=== PATIENT | female | born 1990 | race Caucasian/White ===

== ENCOUNTER 2017-09-02 10:32 | Emergency (ER) | payer SELFPAY ==
[2017-09-02 10:46] VITALS: BP 106/51
--- NOTE | 2017-09-02 19:06 | EDM.PDOC ---
Scribed by Yarely Keenan 09/02/17 1151 for Pinky Cao NP ED HPI GENERAL MEDICAL PROBLEM - General Chief Complaint: ENT Problem Stated Complaint: ? STREP THROAT Time Seen by Provider: 09/02/17 11:43 Source of Information: Reports: Patient, RN, RN Notes Reviewed History Limitations: Reports: No Limitations - History of Present Illness INITIAL COMMENTS - FREE TEXT/NARRATIVE: Patient presented to ER with complaint of numb throat, sore throat, congestion, cough, shortness of breath and left ear pain. She has had no fever, chills, chest pain, nausea, vomiting and diarrhea.The sore throat began Sunday. Duration: Getting Worse Location: Reports: Other (throat) Quality: Reports: Ache Severity: Mild Improves with: Reports: None Worsens with: Reports: None Associated Symptoms: Reports: No Other Symptoms - Related Data Allergies Allergy/AdvReac Type Severity Reaction Status Date / Time No Known Allergies Allergy Verified 02/14/16 13:55 Home Meds: Home Meds Control 1 tab PO DAILY 02/14/16 [History] Past Medical History - Past Health History Medical/Surgical History: Denies Medical/Surgical History HEENT History: Reports: None Cardiovascular History: Reports: None Respiratory History: Reports: None Gastrointestinal History: Reports: None Genitourinary History: Reports: None 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 Musculoskeletal History: Reports: None Neurological History: Reports: None Psychiatric History: Reports: None Endocrine/Metabolic History: Reports: None Hematologic History: Reports: None Immunologic History: Reports: None Oncologic (Cancer) History: Reports: None Dermatologic History: Reports: None Social & Family History - Family History Family Medical History: Noncontributory - Tobacco Use Smoking Status *Q: Never Smoker Years of Tobacco use: 1 Used Tobacco, but Quit: Yes Month/Year Tobacco Last Used: jun 24 Second Hand Smoke Exposure: Yes - Caffeine Use Caffeine Use: Reports: Coffee, Soda, Tea - Alcohol Use Days Per Week of Alcohol Use: 3 Number of Drinks Per Day: 1 Total Drinks Per Week: 3 - Recreational Drug Use Recreational Drug Use: No - Living Situation & Occupation Living situation: Reports: with Significant Other Occupation: Unemployed ED ROS ENT - Review of Systems Review Of Systems: ROS reveals no pertinent complaints other than HPI. ED EXAM, ENT - Physical Exam Exam: See Below Exam Limited By: No Limitations General Appearance: Alert, WD/WN, No Apparent Distress Eye Exam: Bilateral Eye: Normal Inspection Ears: Normal External Exam, Normal Canal, Hearing Grossly Normal, Normal TMs Nose: Other (congestion) Mouth/Throat: Other (throat mildly erythematous) Head: Atraumatic, Normocephalic Neck: Normal Inspection, Supple, Non-Tender, Full Range of Motion Respiratory/Chest: No Respiratory Distress, Lungs Clear, Normal Breath Sounds, No Accessory Muscle Use, Chest Non-Tender Cardiovascular: Normal Peripheral Pulses, Regular Rate, Rhythm, No Edema, No Gallop, No JVD, No Murmur, No Rub GI/Abdominal: Normal Bowel Sounds, Soft, Non-Tender, No Organomegaly, No Distention, No Abnormal Bruit, No Mass (Female) Exam: Deferred Rectal (Female) Exam: Deferred Back: Normal Inspection, Full Range of Motion Extremities: Normal Inspection, Normal Range of Motion, Non-Tender, No Pedal Edema, Normal Capillary Refill Neurological: Alert, Oriented, CN II-XII Intact, Normal Cognition, Normal Gait, Normal Reflexes, No Motor/Sensory Deficits Psychiatric: Normal Affect, Normal Mood Skin: Warm, Dry, Intact, Normal Color, No Rash Lymphatic: No Adenopathy Course - Vital Signs Last Recorded V/S: Last Vital Signs Temp 36.6 C 09/02/17 10:45 Pulse 64 09/02/17 10:45 Resp 16 09/02/17 10:45 BP 106/51 L 09/02/17 10:45 Pulse Ox 100 09/02/17 10:45 - Orders/Labs/Meds Orders: Active Orders 24 hr Category Date Time Status CULTURE STREP A CONFIRMATION [] Stat Lab 09/02/17 10:43 Results STREP SCRN A RAPID W CULT CONF [] Stat Lab 09/02/17 10:43 Results Labs: Rapid strep: Negative. Departure - Departure Time of Disposition: 11:50 Disposition: Home, Self-Care 01 Clinical Impression: Viral upper respiratory infection - Discharge Information Instructions: Viral Respiratory Infection, [id number] Forms: ED Department Discharge Additional Instructions: Tylenol and/or ibuprofen as directed for pain or fever Drink plenty of fluids Rest Follow up with your primary care facility I have read and agree with the documentation that has been completed regarding this visit. By signing this record, I attest that the documentation was completed in my physical presence and is an accurate record of the encounter.
== END 2017-09-02 12:02 | disposition home or self-care (01) ==
LOC: DL.ED 10:32
DX: J06.9 Acute upper respiratory infection, unspecified (principal); Z79.3 Long term (current) use of hormonal contraceptives
CPT/HCPCS: 87081; 87430; 99282; 99283

== ENCOUNTER 2017-12-18 21:07 | Emergency (ER) | payer MEDICARE, MEDICAID ==
[2017-12-18 21:23] VITALS: BP 111/59
--- NOTE | 2017-12-18 23:47 | EDM.PDOC ---
ED HPI GENERAL MEDICAL PROBLEM - General Chief Complaint: Gastrointestinal Problem Stated Complaint: [id number] STOMACH ISSUES Time Seen by Provider: 12/18/17 23:42 Source of Information: Reports: Patient History Limitations: Reports: No Limitations - History of Present Illness INITIAL COMMENTS - FREE TEXT/NARRATIVE: c/o lower abdominal pain over past 2 weeks, Hx constipation, No urinary symptoms. LMP one month ago. No fever or chills. 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 Musculoskeletal History: Reports: None Neurological History: Reports: None Psychiatric History: Reports: None Endocrine/Metabolic History: Reports: None Hematologic History: Reports: None Immunologic History: Reports: None Oncologic (Cancer) History: Reports: None Dermatologic History: Reports: None Social & Family History - Family History Family Medical History: Noncontributory - Tobacco Use Smoking Status *Q: Current Every Day Smoker Years of Tobacco use: 7 Packs/Tins Daily: 3 - Caffeine Use Caffeine Use: Reports: Soda - Recreational Drug Use Recreational Drug Use: No - Living Situation & Occupation Living situation: Reports: with Significant Other Occupation: Unemployed ED ROS GENERAL - Review of Systems Review Of Systems: ROS reveals no pertinent complaints other than HPI. ED EXAM, GI/ABD - Physical Exam Exam: See Below Exam Limited By: No Limitations General Appearance: Alert, No Apparent Distress Ears: Normal External Exam Nose: Normal Inspection Throat/Mouth: Normal Inspection Head: Normocephalic Neck: Normal Inspection Respiratory/Chest: No Respiratory Distress, Lungs Clear Cardiovascular: Normal Peripheral Pulses, Regular Rate, Rhythm GI/Abdominal Exam: Normal Bowel Sounds, Soft, Non-Tender. No: Distended, Guarding, Rebound Neurological: Alert, Oriented Psychiatric: Normal Affect Skin Exam: Warm, Dry, Intact, Normal Color Course - Vital Signs Last Recorded V/S: Last Vital Signs Temp 98.0 F 12/18/17 21:22 Pulse 66 12/18/17 21:22 Resp 18 12/18/17 21:22 BP 111/59 L 12/18/17 21:22 Pulse Ox 98 12/18/17 21:22 - Orders/Labs/Meds Labs: Laboratory Tests 12/18/17 12/18/17 12/18/17 Range/Units 21:33 21:33 21:33 Urine Color Yellow (YELLOW) Urine Appearance Slightly cloudy (CLEAR) Urine pH 5.5 (5.0-9.0) Ur Specific [place] 1.025 (1.005-1.030) Urine Protein Trace H (NEGATIVE) Urine Glucose (UA) Negative (NEGATIVE) Urine Ketones Negative (NEGATIVE) Urine Occult Blood Negative (NEGATIVE) Urine Nitrite Negative (NEGATIVE) Urine Bilirubin Negative (NEGATIVE) Urine Urobilinogen 0.2 (0.2-1.0) mg/dL Ur Leukocyte Esterase Trace H (NEGATIVE) Urine RBC 0-5 /HPF Urine WBC 5-10 H (0-5/HPF) /HPF Ur Epithelial Cells Moderate H /HPF Urine Bacteria Many H (0-FEW/HPF) /HPF Urine Mucus Many H /LPF Urinalysis Comment Urine HCG, Qual Negative Urine Opiates Screen Negative (NEGATIVE) Ur Oxycodone Screen Negative (NEGATIVE) Urine Methadone Screen Negative (NEGATIVE) Ur Barbiturates Screen Negative (NEGATIVE) U Tricyclic Antidepress Negative (NEGATIVE) Ur Phencyclidine Scrn Negative (NEGATIVE) Ur Amphetamine Screen Negative (NEGATIVE) U Methamphetamines Scrn Negative (NEGATIVE) Urine MDMA Screen Negative (NEGATIVE) U Benzodiazepines Scrn Negative (NEGATIVE) Urine Cocaine Screen Negative (NEGATIVE) U Marijuana (THC) Screen Negative (NEGATIVE) Departure - Departure Time of Disposition: 23:45 Disposition: Home, Self-Care 01 Condition: Good Clinical Impression: Abdominal pain Qualifiers: Abdominal location: generalized Qualified Code(s): R10.84 - Generalized abdominal pain - Discharge Information Instructions: Constipation, Adult, [id number] Referrals: PCP,None [Primary Care Provider] - Forms: ED Department Discharge Additional Instructions: miralax one capful daily as needed increase fruit and fiber in diet omeprazole 20mg one daily follow up in clinic if symptoms continue
== END 2017-12-18 23:50 | disposition home or self-care (01) ==
LOC: DL.ED 21:07
DX: R10.84 Generalized abdominal pain (principal); R10.30 Lower abdominal pain, unspecified; F17.210 Nicotine dependence, cigarettes, uncomplicated; Z88.1 Allergy status to other antibiotic agents
CPT/HCPCS: 80305-QW; 81001; 81025; 99283; 99284

== ENCOUNTER 2018-07-30 17:12 | Emergency (ER) | payer MEDICARE, MEDICAID ==
[2018-07-30 17:42] VITALS: BP 104/68
[2018-07-30 19:19] LABS: ANION GAP 14.1; CHLORIDE,CL 102 mmol/L (101-111); SODIUM,NA 134 mmol/L (135-145)
--- NOTE | 2018-07-30 21:08 | EDM.PDOC ---
Scribed by Yarely Keenan 07/30/182044 for Yocasta Sharma PA-C ED HPI GENERAL MEDICAL PROBLEM - General Chief Complaint: ENT Problem Stated Complaint: THROAT Time Seen by Provider: 07/30/18 18:33 Source of Information: Reports: Patient, RN, RN Notes Reviewed History Limitations: Reports: No Limitations - History of Present Illness INITIAL COMMENTS - FREE TEXT/NARRATIVE: Patient presents to ER with complaint of numbness in the throat beginning this afternoon. Patient states it comes and goes. She states she was recently hospitalized for a dental infection in which the left side of her face swelled up. Patient states her doctor wanted her evaluated in ER to make sure the infection was not moving down. She is 29 weeks . Last movement was today sometime. Onset: Today Duration: Getting Worse Location: Reports: Other (throat) Quality: Reports: Ache Severity: Moderate Improves with: Reports: None Worsens with: Reports: None Associated Symptoms: Reports: No Other Symptoms - Related Data Allergies Allergy/AdvReac Type Severity Reaction Status Date / Time No Known Allergies Allergy Verified 07/30/18 17:42 Home Meds: Home Meds Ferrous Sulfate [Iron] 325 mg PO DAILY 06/23/18 [History] #103/Iron Fumarate/Fa [ ] 1 tab PO DAILY 06/23/18 [ History] Clindamycin HCl 300 mg PO TID 07/30/18 [History] Ondansetron HCl [Ondansetron] 4 mg PO ASDIRECTED PRN 07/30/18 [History] Past Medical History - Past Health History Medical/Surgical History: Denies Medical/Surgical History HEENT History: Reports: Other (See Below) Other HEENT History: tooth abscess Cardiovascular History: Reports: None Respiratory History: Reports: None Gastrointestinal History: Reports: None Genitourinary History: Reports: None 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 CONSULTANT 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: 29 weeks Musculoskeletal History: Reports: None Neurological History: Reports: None Psychiatric History: Reports: None Endocrine/Metabolic History: Reports: None Hematologic History: Reports: Iron Deficiency Immunologic History: Reports: None Oncologic (Cancer) History: Reports: None Dermatologic History: Reports: None - Infectious Disease History Infectious Disease History: Reports: None - Past Surgical History Head Surgeries/Procedures: Reports: None Social & Family History - Family History Family Medical History: Noncontributory Other Cardiac Family History: Heart Attack in Maternal Grandfather and Paternal Grandfather Musculoskeletal: Reports: Osteoporosis - Tobacco Use Smoking Status *Q: Never Smoker Second Hand Smoke Exposure: No - Caffeine Use Caffeine Use: Reports: None - Living Situation & Occupation Living situation: Reports: with Significant Other (Significant Other's name is Pat.) Occupation: Employed (Works at [employer]) ED ROS ENT - Review of Systems Review Of Systems: ROS reveals no pertinent complaints other than HPI. ED EXAM, ENT - Physical Exam Exam: See Below Exam Limited By: No Limitations General Appearance: Alert, WD/WN, No Apparent Distress Eye Exam: Bilateral Eye: EOMI, Normal Inspection, PERRL Ears: Normal External Exam, Normal Canal, Hearing Grossly Normal, Normal TMs Nose: Normal Inspection Mouth/Throat: Normal Inspection, Normal Gums, Normal Lips, Normal Oropharynx, Normal Teeth Head: Atraumatic, Normocephalic Neck: Normal Inspection, Supple, Non-Tender, Full Range of Motion Respiratory/Chest: No Respiratory Distress, Lungs Clear, Normal Breath Sounds, No Accessory Muscle Use, Chest Non-Tender Cardiovascular: Normal Peripheral Pulses, Regular Rate, Rhythm, No Edema, No Gallop, No JVD, No Murmur, No Rub GI/Abdominal: Normal Bowel Sounds, Soft, Non-Tender, No Organomegaly, No Distention, No Abnormal Bruit, No Mass (Female) Exam: Deferred Rectal (Female) Exam: Deferred Back: Normal Inspection, Full Range of Motion Extremities: Normal Inspection, Normal Range of Motion, Non-Tender, No Pedal Edema, Normal Capillary Refill Neurological: Alert, Oriented, CN II-XII Intact, Normal Cognition, Normal Gait, Normal Reflexes, No Motor/Sensory Deficits Psychiatric: Normal Affect, Normal Mood Skin: Warm, Dry, Intact, Normal Color, No Rash Lymphatic: No Adenopathy Course - Vital Signs Last Recorded V/S: Last Vital Signs Temp 98.5 F 07/30/18 17:26 Pulse 68 07/30/18 17:26 Resp 16 07/30/18 17:26 BP 104/68 07/30/18 17:26 Pulse Ox 98 07/30/18 17:26 - Orders/Labs/Meds Orders: Active Orders 24 hr Category Date Time Status Heart Tones [ Heart Rate] [RC] Click to Edit Care 07/30/18 18:40 Active CULTURE STREP A CONFIRMATION [RM] Stat Lab 07/30/18 17:37 Results STREP SCRN A RAPID W CULT CONF [] Stat Lab 07/30/18 17:37 Results Labs: Laboratory Tests 07/30/18 07/30/18 Range/Units 18:57 18:57 WBC 10.0 (5.0-10.0) 10^3/uL RBC 3.67 L (4.2-5.4) 10^6/uL Hgb 11.7 L (12.0-16.0) g/dL Hct 35.6 L (37.0-47.0) % MCV 97.0 (80-100) fL MCH 31.9 (27.0-34.0) pg MCHC 32.9 L (33.0-35.0) g/dL Plt Count 197 (150-450) 10^3/uL Neut % (Auto) 74.6 (42.2-75.2) % Lymph % (Auto) 16.3 L (20.5-50.1) % [place] % (Auto) 8.2 H (2-8) % Eos % (Auto) 0.7 L (1.0-3.0) % Baso % (Auto) 0.2 (0.0-1.0) % Sodium 134 L (135-145) mmol/L Potassium 4.1 (3.6-5.0) mmol/L Chloride 102 (101-111) mmol/L Carbon Dioxide 22.0 (21.0-31.0) mmol/L Anion Gap 14.1 BUN 10 (7-18) mg/dL Creatinine 0.7 (0.6-1.3) mg/dL Est Cr Clr Drug Dosing 131.70 mL/min Estimated GFR (MDRD) > 60 BUN/Creatinine Ratio 14.28 Glucose 81 (74-105) mg/dL Calcium 8.8 (8.4-10.2) mg/dl Total Bilirubin 1.1 H (0.2-1.0) mg/dL AST 27 (10-42) IU/L ALT 13 (10-60) IU/L Alkaline Phosphatase 60 (42-121) IU/L Total Protein 6.4 L (6.7-8.2) g/dl Albumin 3.0 L (3.2-5.5) g/dl Globulin 3.4 Albumin/Globulin Ratio 0.88 Rapid strep: Negative. - Re-Assessments/Exams Free Text/Narrative Re-Assessment/Exam: 07/30/18 21:07 Lab testing reviewed with patient, Voices no questions. Departure - Departure Time of Disposition: 20:35 Disposition: Home, Self-Care 01 Condition: Good Clinical Impression: Second trimester - Discharge Information *PRESCRIPTION DRUG MONITORING PROGRAM REVIEWED*: No *COPY OF PRESCRIPTION DRUG MONITORING REPORT IN PATIENT STEFANI: No Forms: ED Department Discharge Additional Instructions: continue antibiotic as ordered oral rinses and gargles after meal and as needed fluids follow up this week with primary care I have read and agree with the documentation that has been completed regarding this visit. By signing this record, I attest that the documentation was completed in my physical presence and is an accurate record of the encounter.
== END 2018-07-30 20:49 | disposition home or self-care (01) ==
LOC: DL.ED 17:12
DX: O99.89 Other specified diseases and conditions complicating pregnancy, childbirth and the puerperium (principal); R20.0 Anesthesia of skin; Z3A.29 29 weeks gestation of pregnancy; Z79.899 Other long term (current) drug therapy
CPT/HCPCS: 36415; 80053; 85025; 87081; 87430; 99283

== ENCOUNTER 2018-10-20 21:44 | Inpatient (IN) | payer MEDICARE, MEDICAID ==
[2018-10-20] MEDS: Lactated Ringers 1,000 ML IV SCH ×2 (22:12→22:33)
[2018-10-20] MEDS ORDERED: Ondansetron 4 MG/2 ML SDV ONE (22:38)
[2018-10-20] MEDS ORDERED: fentaNYL 100 MCG/2 ML SDV ONE (22:39)
[2018-10-20] MEDS ORDERED: EPINEPHrine 1 MG/ML SDV ONE (22:39)
--- NOTE | 2018-10-20 23:11 | PCM.PRNOTE ---
- Free Text/Narrative Note: Requested to provide analgesia to full term patient in severe pain. Upon entering the room, patient is sitting on edge of bed complaining of severe abdominal/pelvic pain and discomfort. Procedure was discussed with patient including adverse outcomes and expectations. Pt consented to analgesia, SAB/ IT. Pt placed into a proper sitting position. Landmarks for SAB/IT were identified and marked. Hands were washed and appropriate PPE was applied. Back was prepped with betadine x3. A sterile, transparent, fenestrated drape was applied. Excess betadine was removed. Using 3 mL of a 1% lidocaine solution , a skin wheel was placed at the L2/L3 interspace. A 24 ga (4 inch) Pencan spinal needle was inserted until positive for CSF. Negative for heme or paresthesias. Injected fentanyl 30 mcg, sufentanil 25 mcg, and 7.5 mg of a 0.75 % bupivacaine solution with an epi wash. Pt was placed left lateral position for approximately 20 minutes. There were zero complications or adverse outcomes. Will continue to monitor. Procedure Date & Time: 10/20/18 [id number]
[2018-10-20] MEDS ORDERED: Lidocaine 1% 30 ML SDV INJECT PRN (23:28)
[2018-10-20] MEDS ORDERED: Misoprostol 400 MCG (4 X 100 MCG TAB) RECTAL PRN (23:28)
[2018-10-20] MEDS ORDERED: Acetaminophen 325 MG Tab PO PRN (23:28)
[2018-10-20] MEDS ORDERED: Carboprost Tromethamine 250 MCG/1 ML Amp IM PRN (23:28)
[2018-10-20] MEDS ORDERED: Sodium Chloride 0.9% 10 ML Syringe FLUSH PRN (23:28)
[2018-10-20] MEDS ORDERED: Ondansetron 4 MG/2 ML SDV IV PRN (23:28)
[2018-10-20] MEDS ORDERED: Tranexamic Acid 1,000 MG in Sodium Chloride 0.9% 100 ML IV PRN (23:28)
[2018-10-20] MEDS ORDERED: Methylergonovine 0.2 MG/1 ML Amp IM PRN (23:28)
--- NOTE | 2018-10-20 23:36 | PCM.LDHP ---
L&D History of Present Illness - General Date of Service: 10/20/18 Admit Problem/Dx: Patient Status Order with Admit Dx/Problem 10/20/18 23:28 Patient Status [ADT] Routine Admission Diagnosis/Problem Admission Diagnosis/Problem care - History of Present Illness Introduction:: 28-year-old at 40w6d presents with increased contractions. She first noticed contractions around 1130 this morning. Around 2030, they started to increase in frequency (4-5 min apart) and intensity. Baby has been active. Some increased discharge noted. No vaginal bleeding. No new headaches or vision changes. has been complicated by late care (patient was on Depo so did not know she was until around 20 weeks) and anemia. - Related Data Allergies/Adverse Reactions: Allergies Allergy/AdvReac Type Severity Reaction Status Date / Time No Known Allergies Allergy Verified 10/13/18 21:14 Home Medications: Home Meds Ferrous Sulfate [Iron] 325 mg PO DAILY 06/23/18 [History] #103/Iron Fumarate/Fa [ ] 1 tab PO DAILY 06/23/18 [ History] Ondansetron HCl [Ondansetron] 4 mg PO ASDIRECTED PRN 07/30/18 [History] Past Medical History - Past Health History Medical/Surgical History: Denies Medical/Surgical History HEENT History: Reports: Other (See Below) Other HEENT History: hx of tooth abscess Cardiovascular History: Reports: None Respiratory History: Reports: None Gastrointestinal History: Reports: None Genitourinary History: Reports: None 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 OB/BYN History: 29 weeks Musculoskeletal History: Reports: None Neurological History: Reports: None Psychiatric History: Reports: None Endocrine/Metabolic History: Reports: None Hematologic History: Reports: Anemia Immunologic History: Reports: None Oncologic (Cancer) History: Reports: None Dermatologic History: Reports: None - Infectious Disease History Infectious Disease History: Reports: None - Past Surgical History Head Surgeries/Procedures: Reports: None HEENT Surgical History: Reports: Oral Surgery Social & Family History - Family History Family Medical History: Noncontributory Other Cardiac Family History: Heart Attack in Maternal Grandfather and Paternal Grandfather Musculoskeletal: Reports: Osteoporosis - Caffeine Use Caffeine Use: Reports: Soda - Living Situation & Occupation Living situation: Reports: with Significant Other (Significant Other's name is Pat.) Occupation: Employed (Works at [employer]) H&P Review of Systems - Review of Systems: Review Of Systems: See Below General: Reports: No Symptoms HEENT: Reports: No Symptoms Pulmonary: Reports: No Symptoms Genitourinary: Reports: No Symptoms Skin: Reports: No Symptoms L&D Exam - Exam Exam: See Below - OB Specific Contraction Intensity: Moderate to Strong Movement: Active Heart Tones: Present Heart Tones per Min: 130 Heart Rate (FHR) Variability: Moderate (6-25 bmp) Presentation: Vertex - Godinez Score Godinez Score Cervix Position: Anterior Godinez Score Consistency: Soft Godinez Score Effacement: >80% Godinez Score Dilation: 3-4 cm Godinez Score 's Station: -1 ,0 Godinez Score Total: 11 - Exam General: Alert, Oriented Lungs: Clear to Auscultation, Normal Respiratory Effort Cardiovascular: Regular Rate, Regular Rhythm Extremities: Pedal Edema (+1 to lower extremities bilaterally) Skin: Warm, Dry, Intact - Patient Data Lab Results Last 24 hrs: Laboratory Results - last 24 hr 10/20/18 Range/Units 22:10 WBC 12.0 H (5.0-10.0) 10^3/uL RBC 3.94 L (4.2-5.4) 10^6/uL Hgb 12.7 (12.0-16.0) g/dL Hct 37.5 (37.0-47.0) % MCV 95.2 (80-100) fL MCH 32.2 (27.0-34.0) pg MCHC 33.9 (33.0-35.0) g/dL Plt Count 210 (150-450) 10^3/uL Neut % (Auto) 75.3 H (42.2-75.2) % Lymph % (Auto) 14.6 L (20.5-50.1) % [place] % (Auto) 9.2 H (2-8) % Eos % (Auto) 0.7 L (1.0-3.0) % Baso % (Auto) 0.2 (0.0-1.0) % Add Manual Diff Yes Neutrophils % (Manual) 72 (42-75) % Band Neutrophils % 1 % Lymphocytes % (Manual) 20 (20-50) % Monocytes % (Manual) 6 (2-8) % Eosinophils % (Manual) 1 (1-3) % Result Diagrams: 10/20/18 22:10 - Problem List (1) care in third trimester SNOMED Code(s): 707324633, 58971902, 73894400, 547050686, 174340548 ICD Code: Z34.93 - ENCNTR FOR SUPRVSN OF NORMAL PREG, UNSP, THIRD TRIMESTER Status: Acute Current Visit: Yes (2) Late care SNOMED Code(s): 427321195 ICD Code: O09.30 - SUPRVSN OF PREG W INSUFFICIENT ANTENAT CARE, UNSP TRIMESTER Status: Acute Current Visit: Yes (3) Anemia affecting SNOMED Code(s): 77016532 ICD Code: O99.019 - ANEMIA COMPLICATING , UNSPECIFIED TRIMESTER Status: Acute Current Visit: Yes Problem List Initiated/Reviewed/Updated: Yes Orders Last 24hrs: Active Orders 24 hr Category Date Time Status Patient Status [ADT] Routine ADT 10/20/18 23:28 Ordered Communication Order [RC] ASDIRECTED Care 10/20/18 23:28 Ordered Heart Tones [RC] PER UNIT ROUTINE Care 10/20/18 23:28 Ordered Notify Provider Vital Signs OB [RC] ASDIRECTED Care 10/20/18 23:28 Ordered Notify Provider [RC] PRN Care 10/20/18 23:28 Ordered Pump Management, Intrathecal [RC] ASDIRECTED Care 10/20/18 23:28 Ordered Up ad [place] [RC] ASDIRECTED Care 10/20/18 23:28 Ordered Vital Signs [RC] PER UNIT ROUTINE Care 10/20/18 23:28 Ordered Clear Liquid Diet [DIET] Diet 10/20/18 Dinner Ordered Acetaminophen [Tylenol] Med 10/20/18 23:28 Ordered 650 mg PO Q4H PRN Carboprost Tromethamine [Hemabate DS] Med 10/20/18 23:28 Ordered 250 mcg IM ASDIRECTED PRN Lactated Ringers @ 125 MLS/HR(1000ml) Med 10/20/18 23:30 Ordered Lactated Ringers [Ringers, Lactated] 1,000 ml IV ASDIRECTED Lidocaine 1% [Xylocaine-MPF 1%] Med 10/20/18 23:28 Ordered 30 ml INJECT ASDIRECTED PRN Methylergonovine [Methergine] Med 10/20/18 23:28 Ordered 0.2 mg IM ASDIRECTED PRN Ondansetron [Zofran] Med 10/20/18 23:28 Ordered 4 mg IV Q4H PRN Oxytocin 30 Units in NS @ 2 MUNITS/MIN(500ml) Med 10/20/18 23:30 Ordered Oxytocin/Normal Saline [Pitocin in NS 30 UNIT/500 ML] 30 unit in 500 ml IV TITRATE Sodium Chloride 0.9% [Saline Flush] Med 10/20/18 23:28 Ordered 10 ml FLUSH ASDIRECTED PRN Tranexamic Acid [Cyklokapron] 1,000 mg Med 10/20/18 23:28 Ordered Sodium Chloride 0.9% [Normal Saline] 100 ml IV ONETIME miSOPROStol [Cytotec] Med 10/20/18 23:28 Ordered 800 mcg RECTAL ASDIRECTED PRN Saline Lock Insert [OM.PC] Routine Oth 10/20/18 23:28 Ordered Resuscitation Status Routine Resus Stat 10/20/18 23:28 Ordered Assessment/Plan Comment:: 28-year-old at 40w6d in active labor 1. Admit to L&D. Initiate routine intrapartum cares 2. Patient received intrathecal for pain control 3. AROM performed for moderate clear fluid 4. Will monitor for cervical change and augment with pitocin if needed. 5. Anticipate Kala Grier MD
[2018-10-21] MEDS: Oxytocin/Normal Saline 30 UNIT/500 ML BAG IV SCH ×2 (01:05→09:52)
[2018-10-21] MEDS ORDERED: fentaNYL 100 MCG/2 ML SDV ONE ×2 (02:51→08:59)
[2018-10-21] MEDS ORDERED: EPINEPHrine 1 MG/ML SDV ONE (02:51)
[2018-10-21] MEDS: Lactated Ringers 1,000 ML IV SCH ×2 (03:00→09:50)
--- NOTE | 2018-10-21 03:30 | PCM.PRNOTE ---
- Free Text/Narrative Note: Requested to provide analgesia to full term patient in severe pain. Upon entering the room, patient is sitting on edge of bed complaining of severe abdominal/pelvic pain and discomfort. Procedure was discussed with patient including adverse outcomes and expectations. Pt consented to analgesia, SAB/ IT. Pt placed into a proper sitting position. Landmarks for SAB/IT were identified and marked. Hands were washed and appropriate PPE was applied. Back was prepped with betadine x3. A sterile, transparent, fenestrated drape was applied. Excess betadine was removed. Using 3 mL of a 1% lidocaine solution , a skin wheel was placed at the L2/L3 interspace. A 24 ga (4 inch) Pencan spinal needle was inserted until positive for CSF. Negative for heme or paresthesias. Injected fentanyl 20 mcg, sufentanil 20 mcg, and 7.5 mg of a 0.75 % bupivacaine solution with an epi wash. Pt was placed left lateral position for approximately 20 minutes. There were zero complications or adverse outcomes. Will continue to monitor. Procedure Date & Time: 10/21/18 [id number]
[2018-10-21] MEDS ORDERED: fentaNYL 100 MCG/2 ML SDV IVPUSH ONE ×2 (09:06→09:58)
[2018-10-21] MEDS ORDERED: Zolpidem 5 MG Tab PO PRN (09:28)
[2018-10-21] MEDS ORDERED: Oxytocin 10 Units/1 ML SDV IM PRN (09:28)
[2018-10-21] MEDS ORDERED: Misoprostol 400 MCG (4 X 100 MCG TAB) RECTAL PRN (09:28)
[2018-10-21] MEDS ORDERED: Carboprost Tromethamine 250 MCG/1 ML Amp IM PRN (09:28)
[2018-10-21] MEDS ORDERED: Simethicone 80 MG Tab.Chew PO PRN (09:28)
[2018-10-21] MEDS ORDERED: Benzocaine/Menthol 20%-0.5% Spray 56 GM Canister TOP PRN (09:28)
[2018-10-21] MEDS ORDERED: Sodium Chloride 0.9% 10 ML Syringe FLUSH PRN (09:28)
[2018-10-21] MEDS ORDERED: Tranexamic Acid 1,000 MG in Sodium Chloride 0.9% 100 ML IV PRN (09:28)
[2018-10-21] MEDS ORDERED: Ketorolac 30 MG/ML SDV IVPUSH PRN (09:30)
[2018-10-21] MEDS ORDERED: Acetaminophen/HYDROcodone 325-5 MG Tab PO PRN (11:10)
[2018-10-21] MEDS: Docusate Sodium 100 MG Cap PO PRN (11:47)
[2018-10-21] MEDS: Triamcinolone Acetonide 0.1% Crm 15 GM Tube TOP SCH ×2 (11:48→20:05)
[2018-10-21] MEDS: Ketorolac 30 MG/ML SDV IVPUSH SCH ×2 (11:49→20:03)
[2018-10-21] MEDS ORDERED: Acetaminophen/HYDROcodone 325-5 MG Tab PO SCH (14:00)
--- NOTE | 2018-10-21 14:54 | PCM.DEL ---
L & D Note - General Info Date of Service: 10/21/18 Mother's Due Date: 10/14/18 - Delivery Note Labor: Spontaneous, Augmented by ARM, Augmented by Oxytocin Delivery Outcome: Livebirth Delivery Method: Spontaneous Vaginal Delivery-Single Infant Delivery Mode: Vacuum Extraction Presentation: Vertex Nuchal Cord: Present, Reduced Anesthesia Type: Intrathecal, Local Anesthetic: Lidocaine (Xylocaine) 1% Plain Local Anesthetic Volume: Other (15 cc) Amniotic Fluid Description: Clear Episiotomy Type: Right Mediolateral Laceration: 2nd Degree, Perineal Suture type: Vicryl Suture size: 3-0 Placenta: Intact, Spontaneous Cord: 3 Vessels Estimated Blood Loss: 400 Resuscitation Needed: Yes [place]: Suctioned, Bulb Syringe, Stimulated, Warmed, [place] Used, Warmer Used Score 1 min: 6 Score 5 min: 7 Delivery Comments (Free Text/Narrative):: 28-year-old presented to L&D on 10/20/18 at 2200 in active labor. Patient was in significant discomfort so intrathecal was placed. AROM was then performed for moderate amount of clear fluid. Patient progressed to complete dilation slowly. At 6 cm, an IUPC was placed. MVUs were not adequate; however , initiation of pitocin resulted in tachysystole so this was discontinued. Patient progressed to complete dilation and was allowed to labor down. She began pushing at 0705 on 10/21/18. Patient had a difficult time pushing initially. No advancement of the head was noted until about 45 minutes of pushing. Patient did push well with encouragement, and head movement was noted. head was noted to be around 0810, and the room was prepped for delivery. Due to maternal fatigue, descent of the head slowed significantly. Therefore, vacuum extraction was attempted. A Kiwi vacuum was applied to the head. Good descent was noted with pushes; however, because of significant hair, it was difficult to maintain vacuum suction, and there were 2 pop-offs. Patient continued to attempt to push but was struggling due to maternal fatigue. A right medio-lateral episiotomy was cut to facilitate delivery. A viable female was born at 0839. Cord was clamped x2 and cut. Baby was taken to the warmer for resuscitation. Apgars were 6 and 7 at 1 and 5 minutes respectively. The placenta delivered 17 minutes later. Bleeding was noted to be brisk. Pitocin was bolused and uterine massage was performed. Bimanual massage was attempted but patient did not tolerate so 50 mcg of IV Fentanyl was given. The lower uterine segment was then swept and several large clots were removed. IM methergine was given and bleeding was noted to be appropriate. A small periurethral laceration was noted but was hemostatic so no repair was performed. A second degree perineal laceration was noted and repaired in the standard fashion. Uterus was again noted to be firm, and bleeding was appropriate. Total blood loss was 400 cc. Patient tolerated the procedure well, and there were no immediate complications. Vacuum Extractor Progress Note - Alternative Labor Strategies Considered Alternative Labor Strategies Considered:: Reports: Yes Strategies Considered:: Reports: Empty Bladder Indications Considered:: Reports: Yes Indications:: Reports: Shortening of 2nd Stage for Maternal Benefit, Suspicion of Immediate or Potential Compromise - Patient Prepared Patient Prepared:: Reports: Yes Informed Consent:: Reports: Verbal Risks: Reports: Yes Risks Include:: Reports: Laceration, Shoulder Dystocia, Maternal Injury Anesthesia/Analgesia Adequate:: Reports: Yes - Probability of Success High Probability of Success:: Reports: Yes Weight Estimated:: Reports: AGA Patient Diabetic:: Reports: No Pelvis Adequate:: Reports: Yes Position:: Vertex Asynclitic:: Reports: No Station:: +1 - Application Time Maximum Application Time & Number of Pop-Offs Predetermined:: Reports: Yes (3) Number of Times Cup Disengaged:: 2 Type of Vacuum Used:: Reports: Cup: Arias type Vacuum Extraction: Successful - Exit Strategy Exit strategy available:: Reports: Yes and resuscitation teams readily available:: Reports: Yes - General Info Date of Service: 10/21/18 - Patient Data Vitals - Most Recent: Last Vital Signs Temp 36.7 C 10/21/18 06:00 Pulse 62 10/21/18 06:00 Resp 14 10/21/18 06:00 BP 113/56 L 10/21/18 06:00 Pulse Ox 99 10/21/18 06:00 Weight - Most Recent: 103.419 kg I&O - Last 24 Hours: Intake & Output 10/20/18 10/21/18 10/21/18 22:59 06:59 14:59 Output Total 200 Balance -200 Lab Results Last 24 Hours: Laboratory Results - last 24 hr 10/20/18 Range/Units 22:10 WBC 12.0 H (5.0-10.0) 10^3/uL RBC 3.94 L (4.2-5.4) 10^6/uL Hgb 12.7 (12.0-16.0) g/dL Hct 37.5 (37.0-47.0) % MCV 95.2 (80-100) fL MCH 32.2 (27.0-34.0) pg MCHC 33.9 (33.0-35.0) g/dL Plt Count 210 (150-450) 10^3/uL Neut % (Auto) 75.3 H (42.2-75.2) % Lymph % (Auto) 14.6 L (20.5-50.1) % George % (Auto) 9.2 H (2-8) % Eos % (Auto) 0.7 L (1.0-3.0) % Baso % (Auto) 0.2 (0.0-1.0) % Add Manual Diff Yes Neutrophils % (Manual) 72 (42-75) % Band Neutrophils % 1 % Lymphocytes % (Manual) 20 (20-50) % Monocytes % (Manual) 6 (2-8) % Eosinophils % (Manual) 1 (1-3) % Med Orders - Current: Current Medications Acetaminophen (Tylenol) 650 mg PO Q6H PRN PRN Reason: mild pain or fever Hydrocodone Bitart/Acetaminophen (Artesia 325-5 Mg) 1 tab PO Q8HR PRN PRN Reason: Pain Benzocaine/Menthol (Dermoplast Pain Relief Wilkinson) 0 gm TOP Q4H PRN PRN Reason: Perineal comfort measures Last Admin: 10/21/18 11:50 Dose: 1 spray Carboprost Tromethamine (Hemabate Ds) 250 mcg IM ASDIRECTED PRN PRN Reason: Excessive vaginal bleeding Docusate Sodium (Colace) 100 mg PO BID PRN PRN Reason: Constipation Last Admin: 10/21/18 11:47 Dose: 100 mg Lactated Ringer's (Ringers, Lactated) 1,000 mls @ 125 mls/hr IV ASDIRECTED MARCELLO Last Admin: 10/21/18 09:50 Dose: 125 mls/hr Oxytocin/Sodium Chloride (Pitocin In Ns 30 Unit/500 Ml) 30 unit in 500 mls @ 2 mls/hr IV TITRATE MARCELLO; Protocol Last Admin: 10/21/18 09:52 Dose: 250 mls/hr Tranexamic Acid 1,000 mg/ (Sodium Chloride) 110 mls @ 660 mls/hr IV ONETIME PRN PRN Reason: Bleeding Ibuprofen (Motrin) 800 mg PO Q8H PRN PRN Reason: Mild Pain or Fever Ketorolac Tromethamine (Toradol) 30 mg IVPUSH Q8H [facility] Stop: 10/22/18 03:31 Last Admin: 10/21/18 11:49 Dose: 30 mg Lidocaine HCl (Xylocaine-Mpf 1%) 30 ml INJECT ASDIRECTED PRN PRN Reason: Perineal Repair Last Admin: 10/21/18 08:30 Dose: 30 ml Methylergonovine Maleate (Methergine) 0.2 mg IM ASDIRECTED PRN PRN Reason: Hemorrhage Last Admin: 10/21/18 09:07 Dose: 0.2 mg Misoprostol (Cytotec) 800 mcg RECTAL ONETIME PRN PRN Reason: Hemorrhage Ondansetron HCl (Zofran) 4 mg IV Q4H PRN PRN Reason: Nausea/Vomiting Last Admin: 10/20/18 22:41 Dose: 4 mg Oxytocin (Pitocin) 10 unit IM ONETIME PRN PRN Reason: Bleeding Prenat Multivit/Heavy Machinery Operator/Iron/Folic Ac ( Plus Iron) 1 each PO DAILY [facility] Simethicone (Simethicone) 80 mg PO Q4H PRN PRN Reason: Gas Sodium Chloride (Saline Flush) 10 ml FLUSH ASDIRECTED PRN PRN Reason: Keep Vein Open Triamcinolone Acetonide (Triamcinolone Acetonide 0.1% Crm) 15 gm TOP BID [facility] Last Admin: 10/21/18 11:48 Dose: 1 applic Zolpidem Tartrate (Ambien) 5 mg PO BEDTIME PRN PRN Reason: Insomnia Discontinued Medications Acetaminophen (Tylenol) 650 mg PO Q4H PRN PRN Reason: Pain (Mild 1-3) and fever Last Admin: 10/21/18 01:41 Dose: 650 mg Hydrocodone Bitart/Acetaminophen (Artesia 325-5 Mg) 1 tab PO Q8HR [facility] Carboprost Tromethamine (Hemabate Ds) 250 mcg IM ASDIRECTED PRN PRN Reason: HEMORRHAGE Epinephrine HCl (Adrenalin) Confirm Administered Dose 1 mg .ROUTE .STK-MED ONE Stop: 10/20/18 22:40 Last Admin: 10/21/18 00:20 Dose: Not Given Epinephrine HCl (Adrenalin) Confirm Administered Dose 1 mg .ROUTE .STK-MED ONE Stop: 10/21/18 02:52 Last Admin: 10/21/18 04:27 Dose: Not Given Fentanyl (Sublimaze) Confirm Administered Dose 100 mcg .ROUTE .STK-MED ONE Stop: 10/20/18 22:40 Last Admin: 10/21/18 00:20 Dose: Not Given Fentanyl (Sublimaze) Confirm Administered Dose 100 mcg .ROUTE .STK-MED ONE Stop: 10/21/18 02:52 Last Admin: 10/21/18 04:27 Dose: Not Given Fentanyl (Sublimaze) Confirm Administered Dose 100 mcg .ROUTE .STK-MED ONE Stop: 10/21/18 09:00 Last Admin: 10/21/18 10:00 Dose: Not Given Fentanyl (Sublimaze) 50 mcg IVPUSH ONETIME ONE Stop: 10/21/18 09:59 Last Admin: 10/21/18 09:06 Dose: 50 mcg Tranexamic Acid 1,000 mg/ (Sodium Chloride) 110 mls @ 660 mls/hr IV ONETIME PRN PRN Reason: Bleeding Ketorolac Tromethamine (Toradol) 30 mg IVPUSH Q8H PRN PRN Reason: Pain Stop: 10/26/18 09:31 Misoprostol (Cytotec) 800 mcg RECTAL ASDIRECTED PRN PRN Reason: Hemorrhage Ondansetron HCl (Zofran) Confirm Administered Dose 4 mg .ROUTE .STK-MED ONE Stop: 10/20/18 22:39 Last Admin: 10/21/18 00:37 Dose: Not Given Sodium Chloride (Saline Flush) 10 ml FLUSH ASDIRECTED PRN PRN Reason: Keep Vein Open Sufentanil Citrate (Sufenta) Confirm Administered Dose 50 mcg .ROUTE .STK-MED ONE Stop: 10/20/18 22:40 Last Admin: 10/21/18 00:20 Dose: Not Given Sufentanil Citrate (Sufenta) Confirm Administered Dose 50 mcg .ROUTE .STK-MED ONE Stop: 10/21/18 02:52 Last Admin: 10/21/18 04:27 Dose: Not Given - Problem List & Annotations (1) care in third trimester SNOMED Code(s): 337720673, 28167812, 29564330, 148884649, 538937068 Code(s): Z34.93 - ENCNTR FOR SUPRVSN OF NORMAL PREG, UNSP, THIRD TRIMESTER Status: Acute Current Visit: Yes (2) Late care SNOMED Code(s): 434284237 Code(s): O09.30 - SUPRVSN OF PREG W INSUFFICIENT ANTENAT CARE, UNSP TRIMESTER Status: Acute Current Visit: Yes (3) Anemia affecting SNOMED Code(s): 34155875 Code(s): O99.019 - ANEMIA COMPLICATING , UNSPECIFIED TRIMESTER Status: Acute Current Visit: Yes (4) Lichen sclerosus of female genitalia SNOMED Code(s): 936888850 Code(s): N90.4 - [place] OF [place] Status: Acute Current Visit: Yes - Problem List Review Problem List Initiated/Reviewed/Updated: Yes - My Orders Last 24 Hours: My Active Orders 10/20/18 23:28 Patient Status [ADT] Routine Communication Order [RC] ASDIRECTED Notify Provider [RC] PRN Vital Signs [RC] 08,20 Lidocaine 1% [Xylocaine-MPF 1%] 30 ml INJECT ASDIRECTED PRN Methylergonovine [Methergine] 0.2 mg IM ASDIRECTED PRN Ondansetron [Zofran] 4 mg IV Q4H PRN Saline Lock Insert [OM.PC] Routine Resuscitation Status Routine 10/20/18 23:30 Lactated Ringers [Ringers, Lactated] 1,000 ml IV ASDIRECTED Oxytocin/Normal Saline [Pitocin in NS 30 UNIT/500 ML] 30 unit in 500 ml IV TITRATE 10/20/18 Dinner Clear Liquid Diet [DIET] 10/21/18 02:35 Urinary Catheter Assessment [RC] ASDIRECTED 10/21/18 11:10 Acetaminophen/HYDROcodone [Artesia 325-5 MG] 1 tab PO Q8HR PRN 10/21/18 11:30 Ketorolac [Toradol] 30 mg IVPUSH Q8H - Assessment Assessment:: 28-year-old, now , status post-VAVD with episiotomy at 41w0d - Plan Plan:: 1. Initiate routine orders 2. Will give Toradol 30 mg IV every 3 hours x 3 doses. Transition to ibuprofen tomorrow morning. 3. Artesia every 8 hours PRN 4. Lichen sclerosis noted. Kenalog ointment prescribed 5. Plans to bottle feed. 6. Anticipate discharge 10/23/18. Dr. Garcia to round tomorrow in my absence. Kala Grier MD
[2018-10-22] MEDS: Ketorolac 30 MG/ML SDV IVPUSH SCH (03:00)
[2018-10-22] MEDS: Acetaminophen 325 MG Tab PO PRN ×3 (08:38→21:11)
[2018-10-22] MEDS: Triamcinolone Acetonide 0.1% Crm 15 GM Tube TOP SCH ×2 (08:38→21:15)
[2018-10-22] MEDS: Docusate Sodium 100 MG Cap PO PRN ×2 (08:38→21:10)
[2018-10-22] MEDS: Prenatal Multivitamin with Calcium/Folic Acid/Iron Tab PO SCH (08:38)
--- NOTE | 2018-10-22 11:26 | PN ---
DATE: 10/22/2018 SUBJECTIVE: Jessica is day 1 from spontaneous vaginal delivery with vacuum assist of a term female at 41 weeks 0 days gestation. She has no complaints overnight. She is tolerating activity, eating and urinating well. She is not sure if she passed any flatus and has not had a bowel movement yet. She is bottle-feeding. Endorsing minimal cramping and minimal bleeding. Planning for discharge tomorrow. OBJECTIVE: Vital Signs: Temperature 99.2, pulse 74, blood pressure 120/64, respiratory rate 16, O2 saturation 97%. General: The patient is alert, cooperative, in no acute distress. HEENT: Grossly normal. Heart: Regular rate and rhythm. Lungs: Clear to auscultation bilaterally. Abdomen: Uterus is palpated 2 cm below the umbilicus. Soft abdomen. Nontender and nondistended. Extremities: No edema or erythema. Calves are nontender. Neurologic: Range of motion and strength in extremities are unremarkable. ASSESSMENT: Jessica is day 1 from spontaneous vaginal delivery of a term female infant at 41 weeks and 0 days. PLAN: 1. Continue routine cares. 2. Bottle-feeding. 3. Planning for discharge tomorrow. 4. Continue education on cares for baby. The patient was seen by myself and Dr. Megan Garcia. Assessment and plan are under advisement of Dr. Garcia. Juan M Coburn, MS-III [facility] /[id number] Patient seen and examined. Agree with note as scribed on my behalf by Juan M Coburn MS3. -communications tower climber 10/23/18 0601 MTDD
[2018-10-22] MEDS: Ibuprofen 800 MG Tab PO PRN ×2 (13:38→21:10)
[2018-10-23] MEDS: Ibuprofen 800 MG Tab PO PRN (06:11)
[2018-10-23] MEDS: Acetaminophen 325 MG Tab PO PRN ×2 (06:11→13:12)
[2018-10-23] MEDS: Docusate Sodium 100 MG Cap PO PRN (10:13)
[2018-10-23] MEDS: Prenatal Multivitamin with Calcium/Folic Acid/Iron Tab PO SCH (10:13)
[2018-10-23 11:51] VITALS: BP 123/82
[2018-10-23] MEDS: Triamcinolone Acetonide 0.1% Crm 15 GM Tube TOP SCH (13:12)
[2018-10-23] MEDS ORDERED: EPINEPHrine 1 MG/ML SDV ONE (13:14)
[2018-10-23] MEDS ORDERED: fentaNYL 100 MCG/2 ML SDV ITHECAL ONE ×2 (13:14)
--- NOTE | 2018-10-24 05:25 | DISCH ---
ADMITTING DIAGNOSES: 1. 40-week 6-day intrauterine based on 22-week 2-day ultrasound. 2. 1, para 0. 3. Late care. 4. Anemia in . 5. Blood type A positive, group B strep negative, rubella immune. DISCHARGE DIAGNOSES: 1. 41 weeks 0 day intrauterine by 22-week 2-day ultrasound. 2. 1, now para 1-0-0-1. 3. Late care. 4. Anemia in . 5. Vacuum-assisted vaginal delivery. 6. Second-degree perineal repair. 7. Episiotomy. 8. Blood type A positive, group B strep negative, rubella immune. 9. Lichen of the labia. BRIEF HISTORY: A 28-year-old female with the above-listed diagnoses, presented with increased contractions and increased discharge. The patient was on Depo when she got and had late care. During , the patient was on Prilosec, Zofran, Zantac, amoxicillin and clindamycin for tooth abscess, iron for her anemia, and vitamins. HOSPITAL COURSE: Good. The patient received an intrathecal and had artificial rupture of membranes with clear fluid. The patient progressed to complete dilation slowly. At 6 cm, an IUPC was placed. MVUs were not adequate; however, initiation of Pitocin resulted in tachysystole, so this was discontinued. The patient progressed to complete dilation and was allowed to labor down. The patient had a difficult time pushing initially. head advancement was noted after 45 minutes of pushing. The patient did end up pushing well and descent of the head began. Due to maternal fatigue, descent of the head had slowed significantly, so a vacuum was applied to the head. A right medial lateral episiotomy was cut to facilitate delivery. Viable female was delivered. Three-vessel umbilical cord was clamped and cut. Baby was taken to warmer. scores were 6 and 7. Placenta delivered and there was brisk bleeding. Pitocin was bolused and uterine massage was performed. The patient required fentanyl because she was not able to tolerate bimanual massage. Large clots were removed. IM Methergine was given and bleeding was noted to be appropriate. A small periurethral laceration was noted, but hemostatic, so no repair was performed. A second-degree perineal laceration was repaired. Uterus was noted to be firm and bleeding was appropriate. The patient has denied any excessive bleeding, headaches, visual changes, shortness of breath, chest pain, or fevers. She has been tolerating diet, ambulating, urinating, and having bowel movements as normal. No immediate complications. DISCHARGE CONDITION: Good. DISCHARGE PHYSICAL EXAM: Vital Signs: Temperature 98.2, pulse rate 84, blood pressure 115/73, respiratory rate 16, and oxygen saturation 99%. Heart: Regular rate and rhythm without murmur. Lungs: Clear bilaterally. Abdomen: Soft, nontender. Fundus firm and below the umbilicus. Extremities: No edema, erythema, or tenderness noted. LABORATORY DATA: Hemoglobin 12.7 on admission, down to 10.6; platelets 210 on admission, 160 after delivery. DISCHARGE MEDICATIONS: Ibuprofen 800 mg p.o. t.i.d. p.r.n., Tylenol 650 mg p.o. q.i.d. p.r.n., iron 325 mg p.o. b.i.d., Colace 100 mg p.o. b.i.d. p.r.n. for constipation, and clobetasol topical cream 0.05% b.i.d. to vaginal area. DISPOSITION: Home with family. FOLLOWUP: The patient is advised to have a 6-week followup with Dr. Grier. Her baby will have an appointment with Dr. Mcgovern on 10/25/2018. The patient requires lots of education. The patient was seen by myself and Dr. Garcia. Assessment and plan are under advisement of Dr. Garcia. Juan M Coburn MS-III [facility] /[id number] MTDErica
== END 2018-10-23 13:15 | disposition home or self-care (01) | DRG 807 ==
LOC: DL.OBCHECK 21:44 → DL.OB 22:04 → OBSVTOIN 10-21 08:39
PROVIDERS: ADMIT Family Medicine; ATTEND Family Medicine
PROC: 10D07Z6 Extraction of Products of Conception, Vacuum, Via Natural or Artificial Opening (ICD-10-PCS; principal; 2018-10-21)
PROC: 0KQM0ZZ Repair Perineum Muscle, Open Approach (ICD-10-PCS; 2018-10-21)
PROC: 10907ZC Drainage of Amniotic Fluid, Therapeutic from Products of Conception, Via Natural or Artificial Opening (ICD-10-PCS; 2018-10-21)
PROC: 0W8NXZZ Division of Female Perineum, External Approach (ICD-10-PCS; 2018-10-21)
PROC: 10H07YZ Insertion of Other Device into Products of Conception, Via Natural or Artificial Opening (ICD-10-PCS; 2018-10-21)
PROC: 3E0R3BZ Introduction of Anesthetic Agent into Spinal Canal, Percutaneous Approach (ICD-10-PCS; 2018-10-21)
PROC: 00HU33Z Insertion of Infusion Device into Spinal Canal, Percutaneous Approach (ICD-10-PCS; 2018-10-21)
DX: O48.0 Post-term pregnancy (principal); O99.02 Anemia complicating childbirth; D64.9 Anemia, unspecified; O69.81X0 Labor and delivery complicated by cord around neck, without compression, not applicable or unspecified; O70.1 Second degree perineal laceration during delivery; N90.4 Leukoplakia of vulva; O75.89 Other specified complications of labor and delivery; Z37.0 Single live birth; Z3A.40 40 weeks gestation of pregnancy
CPT/HCPCS: 01967; 36415; 51701; 59409; 85025; 85027; A9270-GY; J0171; J1885; J2001; J2210; J2405; J2590; J3010; J7120

== ENCOUNTER 2021-04-06 06:58 | Emergency (ER) | payer MEDICARE, MEDICAID ==
[2021-04-06 07:12] VITALS: BP 112/86; PULSE 115
[2021-04-06 07:54] LABS: CORONAVIRUS COVID-19 NAA POSITIVE (NEGATIVE)
--- NOTE | 2021-04-06 08:13 | EDM.PDOC ---
ED HPI GENERAL MEDICAL PROBLEM - General Stated Complaint: [id number] HAD NAIL REMOVED HEADACHE NAUSEA Time Seen by Provider: 04/06/21 07:45 Source of Information: Reports: Patient History Limitations: Reports: No Limitations - History of Present Illness INITIAL COMMENTS - FREE TEXT/NARRATIVE: This 31 yo female patient reports to the ED due to not feeling well since Sunday. The patient reports she had a toenail removed on Sunday and has felt nauseated since that time. The patient denies any COVID vaccination. The patient also reports a cough and generalized weakness. Onset Date: 04/02/21 Duration: Constant Location: Reports: Generalized Quality: Reports: Other Severity: Moderate Improves with: Reports: None Worsens with: Reports: None Context: Reports: Other Associated Symptoms: Reports: Cough, Weakness - Related Data Allergies Allergy/AdvReac Type Severity Reaction Status Date / Time Penicillins Allergy Cannot Verified 12/21/18 11:20 Remember Home Meds: Home Meds . [No Known Home Meds] 12/21/18 [History] Past Medical History - Past Health History Medical/Surgical History: Denies Medical/Surgical History HEENT History: Reports: Other (See Below) Other HEENT History: hx of tooth abscess Cardiovascular History: Reports: None Respiratory History: Reports: None Gastrointestinal History: Reports: None Genitourinary History: Reports: None PRISON TEACHER History: Reports: Other PRISON TEACHER History: 29 weeks Musculoskeletal History: Reports: None Neurological History: Reports: None Psychiatric History: Reports: None Endocrine/Metabolic History: Reports: None Hematologic History: Reports: Anemia Immunologic History: Reports: None Oncologic (Cancer) History: Reports: None Dermatologic History: Reports: None - Infectious Disease History Infectious Disease History: Reports: None - Past Surgical History Head Surgeries/Procedures: Reports: None HEENT Surgical History: Reports: Oral Surgery Social & Family History - Family History Family Medical History: No Pertinent Family History Other Cardiac Family History: Heart Attack in Maternal Grandfather and Paternal Grandfather Musculoskeletal: Reports: Osteoporosis - Tobacco Use Tobacco Use Status *Q: Never Tobacco User - Caffeine Use Caffeine Use: Reports: None - Recreational Drug Use Recreational Drug Use: No - Living Situation & Occupation Living situation: Reports: with Significant Other (Significant Other's name is Pat.) Occupation: Employed (Works at [employer]) ED ROS GENERAL - Review of Systems Review Of Systems: Comprehensive ROS is negative, except as noted in HPI. ED EXAM, GENERAL - Physical Exam Exam: See Below Exam Limited By: No Limitations General Appearance: Alert, WD/WN, Moderate Distress Eye Exam: Bilateral Eye: EOMI, Normal Inspection, PERRL Ears: Normal External Exam, Normal Canal, Hearing Grossly Normal, Normal TMs Nose: Normal Inspection, Normal Mucosa, No Blood Throat/Mouth: Normal Inspection, Normal Lips, Normal Teeth, Normal Gums, Normal Oropharynx, Normal Voice, No Airway Compromise Head: Atraumatic, Normocephalic Neck: Normal Inspection, Supple, Non-Tender, Full Range of Motion Respiratory/Chest: No Respiratory Distress, Lungs Clear, Normal Breath Sounds, No Accessory Muscle Use, Chest Non-Tender, Other (cough) Cardiovascular: Normal Peripheral Pulses, Regular Rate, Rhythm, No Edema, No Gallop, No JVD, No Murmur, No Rub GI/Abdominal: Normal Bowel Sounds, Soft, Non-Tender, No Organomegaly, No Di stention, No Abnormal Bruit, No Mass (Female) Exam: Deferred Rectal (Female) Exam: Deferred Back Exam: Normal Inspection, Full Range of Motion, NT Extremities: Normal Inspection, Normal Range of Motion, Non-Tender, Normal Capillary Refill, No Pedal Edema Neurological: Alert, Oriented, CN II-XII Intact, Normal Cognition, Normal Gait, Normal Reflexes, No Motor/Sensory Deficits Psychiatric: Normal Affect, Normal Mood Skin Exam: Warm, Dry, Intact, Normal Color, No Rash Lymphatic: No Adenopathy Course - Vital Signs Last Recorded V/S: Last Vital Signs Temp 98.6 F 04/06/21 07:10 Pulse 115 H 04/06/21 07:10 Resp 20 04/06/21 07:10 BP 112/86 04/06/21 07:10 Pulse Ox 96 04/06/21 07:10 - Orders/Labs/Meds Labs: Laboratory Tests 04/06/21 Range/Units 07:08 Influenza Type A RNA Negative (NEGATIVE) Influenza Type B RNA Negative (NEGATIVE) SARS-CoV-2 RNA (QUINN) Positive H (NEGATIVE) Departure - Departure Time of Disposition: 08:12 Disposition: Home, Self-Care 01 Condition: Fair Clinical Impression: COVID-19 - Discharge Information *PRESCRIPTION DRUG MONITORING PROGRAM REVIEWED*: Not Applicable *COPY OF PRESCRIPTION DRUG MONITORING REPORT IN PATIENT STEFANI: Not Applicable Instructions: COVID-19: What Your Test Results Mean - CDC (11/08/2019), COVID- 19: How to Protect Yourself and Others - CDC, COVID-19: Quarantine vs. Isolation - [facility] [place] (05/27/2020), COVID-19 Frequently Asked Questions Forms: ED Department Discharge Care Plan Goals: The patient was advised of the examination and the lab results during the visit. A prescription was called into [facility] for Zofran (4 mg) #20 to take 1 by mouth every 6 hours as needed for nausea. The patient was advised to quarantine over the next week (a work note was given to the patient). The patient was advised to take a picture of the note and lab results and send them to her employer. The patient should arrange from someone to miner pick her prescription for her and deliver it to her home. If the patient has any additional symptoms or concerns, the patient should either return to the emergency department or visit her primary care faciliy. Sepsis Event Note (ED) - Focused Exam Vital Signs: Vital Signs Temp Pulse Resp BP Pulse Ox 04/06/21 07:10 98.6 F 115 H 20 112/86 96
== END 2021-04-06 08:15 | disposition home or self-care (01) ==
LOC: DL.ED 06:58
DX: U07.1 COVID-19 (principal); Z88.0 Allergy status to penicillin
CPT/HCPCS: 0240U; 99284